=== PATIENT | male | born 1965 | race American Indian/Alaskan Native ===

== ENCOUNTER 2017-02-24 17:52 | Emergency (ER) | payer SELFPAY | END 2017-02-24 18:26 | disposition left against medical advice (07) | LOC: ED 17:52 | DX: J02.9 Acute pharyngitis, unspecified (principal); Z53.21 Procedure and treatment not carried out due to patient leaving prior to being seen by health care provider ==

== ENCOUNTER 2017-04-15 07:04 | Emergency (ER) | payer SELFPAY | END 2017-04-15 08:00 | disposition left against medical advice (07) | LOC: ED 07:04 | DX: M79.641 Pain in right hand (principal); M79.89 Other specified soft tissue disorders; Z53.21 Procedure and treatment not carried out due to patient leaving prior to being seen by health care provider ==